=== PATIENT | male | born 1950 | race Caucasian/White ===

== ENCOUNTER 2024-09-25 10:01 | Outpatient (OUT) | payer MEDICARE, SELFPAY ==
--- NOTE | 2024-09-25 10:06 | ECG_ITS ---
[facility] Test Date: 2024-09-25 Pat Name: ARNOL ROBERT Department: Room: - Gender: Male Health Record Technician: : 1950 Requested By: HANNA ROSALES Order Number: [id number] Jonnie MD: HELENA BLANCHARD M.D. Measurements Intervals [place] Rate: 54 P: 44 NH: 173 QRS: 23 QRSD: 98 T: 45 QT: 420 QTc: 400 Interpretive Statements SINUS BRADYCARDIA WITH SINUS ARRHYTHMIA Otherwise normal ECG No previous ECG available for comparison Electronically Signed On 09-25-2024 17:48:49 EDT by HELENA BLANCHARD M.D.
--- OUTSIDE RECORDS SUMMARY | 2024-09-25 10:07 | XMS_ITS | Patient Health Record ---
Author Organization [facility] Address [address] [place] [address] Care Team Providers Care Manager Drilling Name Role Phone Michael Holden Primary Care Provider Unavailabl e Reason For Referral No Information Immunizations Vaccine Route Administration Date Status Comme nts PFIZER Covid 19 BOOSTER (0.3ml) 12yr & up IM Intramuscular 01/21/2021 Administered Problems No Known Problems Plan Of Treatment No Information Insurance Providers Payer Name Payer Address Payer Phone Subscriber Number Group Number Insured Name Patient Relationship to Insured Coverage Start Date Coverage End Date [place] [address] [place] [phone] [id number] ARNOL ROBERT Self - patient is the insured
--- OUTSIDE RECORDS SUMMARY | 2024-09-25 10:07 | XMS_ITS | Clinical Summary ---
Author Organization [facility] Address [address] [place] [address], [address] [place] [address] Care Team Providers Care Folding Machine Setter Name Role Phone Unavailable Primary Care Provider Unavailabl e Social History Tobacco Use Types Packs/Day Years Used Date Smoking Tobacco: Never Assessed Sex and Gender Information Value Date Recorded Sex Assigned at Not on file Legal Sex Male 10:18 AM EDT Gender Identity Not on file Sexual Orientation Not on file Plan of Treatment Not on file Insurance MEDICARE Member Subscriber Plan / Payer (Ef fective 2016-Present) Name:Richard Bravo Relation to Subscriber:Self Name:Richard Bravo Payer ID:Not on file Group ID:Not on file Type:Not on file Address: [address]
--- OUTSIDE RECORDS SUMMARY | 2024-09-25 10:07 | XMS_ITS | Encounter Summary ---
Author Organization [facility] Address [address] [place] [address] Care Team Providers Care Track Fitter Name Role Phone CarleyRaj aguilar Primary Care Provider + [phone] Maranda Bradley STUDIO GRIP-FAMILY CONSUMER SCIENTIST Unavailable + [phone] Alverto Marina MD Unavailable [phone] Encounter Details Date Type Department Care Team (Late st Contact Info) Description 11/13/2022 Orders Only [facility] [address] [facility] [address] [place] [phone] A, Unknown Practice [address] [place], [place] [phone] Social History Tobacco Use Types Packs/Day Years Used Date Smoking Tobacco: Former Cigarettes Q uit: 02/09/2004 Smokeless Tobacco: Never Alcohol Use Standard Drinks/Week Comments Yes 0 (1 standard drink = 0.6 oz pure alcohol) Points: 7, Interpretation: positive; Caffeine: Coffee 1-2 cups a day AUDIT-C Answer Date Recorded Q1: How often do you have a drink containing alcohol? 4 or more times a week 11/02/2022 Q2: How many drinks containi ng alcohol do you have on a typical day when you are drinking? 3 or 4 Q3: How often do you have si x or more drinks on one occasion? Monthly 11/02/2022 PHQ-2 Answer Date Recorded Patient Health Questionnaire-2 Score 0 11/02/2022 Sex and Gender Information Value Date Recorded Sex Assigned at Not on file Legal Sex Male 7:14 PM EDT Gender Identity Not on file Sexual Orientation Not on file documented as of this encounter Plan of Treatment Upcoming Encounters Date Type Department Care Team (Late st Contact Info) Description 10/02/2024 10:35 AM EDT Office Visit [facility] [address] [place] [phone] Maranda Bradley, STUDIO GRIP-FAMILY CONSUMER SCIENTIST [address] [place] [address] 12/26/2024 10:00 AM EST Office Visit [facility] [address] [place] [phone] Raj Preston DO [address] [place] [address] documented as of this encounter Procedures Procedure Name Priority Date/Time Associated Diagnosis Comments CT ANGIO CARDIAC Routine 11/09/2022 8:19 AM EDT documented in this encounter Results * CT ANGIO CARDIAC (11/09/2022 8:19 AM EDT) Anatomical Region Laterality Modality Radiographic Radha ging us Unknown Practice A IMG XR PROCEDURES Final Resul t documented in this encounter Visit Diagnoses Not on filedocumented in this encounter Care Teams Track Fitter Relationship Specialty Start Date End Date Raj Preston DO [address] [place] [address] PCP - General Internal Medicine 10/26/22 Maranda Bradley, STUDIO GRIP-FAMILY CONSUMER SCIENTIST [address] [place] [address] Nurse Practitioner Dermatology 07/04/24 Alverto Marina MD [address] [place] [address] Referring Physician Urology 07/04/24 [facility] Ophthalmology 07/04/24 documented as of this encounter
--- OUTSIDE RECORDS SUMMARY | 2024-09-25 10:07 | XMS_ITS | Encounter Summary ---
Author Organization [facility] Address [address] [facility] [place] [address] Care Team Providers Care Quality Assurance/R&D Lab Technician Name Role Phone Haider Preston DO Primary Care Provider [phone] Maranda Bradley APRN-WATCH ENGINE OPERATOR Unavailable + [phone] Alverto Marina MD Unavailable [phone] Encounter Details Date Type Department Care Team (Late st Contact Info) Description 11/09/2022 Clinisync Result Encounter [facility] External Department Unsolicited Haider Preston DO [address] [facility] [address] [place] [address] Social History Tobacco Use Types Packs/Day Years [...] Description 10/02/2024 10:35 AM EDT Office Visit [facility] [address] [place] [phone] Maranda Bradley, SPEECH COMMUNICATION INSTRUCTOR-WATCH ENGINE OPERATOR [address] [place] [address] 12/26/2024 10:00 AM EST Office Visit [facility] [address] [place] [address] Haider Preston DO [address] [place] [address] documented as of this encounter Procedures Procedure Name Priority Date/Time Associated Diagnosis Comments CT CARDIAC CALCIUM SCORING 11/09/2022 11:58 AM EDT documented in this encounter Results * CT CARDIAC CALCIUM SCORING (11/09/2022 11:58 AM EDT) Anatomical Region Laterality Modality Radiographic Radha ging 11/09/2022 11:5 8 AM EDT Narrative 11/09/2022 4:33 PM EDT Interpreted By: Guille Hunt, STUDY: CT CARDIAC SCORING WO IV CONTRAST; 11/09/2022 12:35 pm INDICATION: Signs/Symptoms:SCREENING. COMPARISON: None. ACCESSION NUMBER(S): [id number] ORDERING CLINICIAN: HAIDER PRESTON TECHNIQUE: Using prospective ECG gating, CT scan of the coronary arteries was performed without intravenous contrast. Coronary calcium scoring was performed according to the method of Agatston. FINDINGS: The score and distribution of calcium in the coronary arteries is as follows: LM 94.57, LAD 530.8, LCx 0, RCA 165.1, Total 790.55 The visualized ascending thoracic aorta is aneurysmal and measures 4.1 cm in diameter. The heart is normal in size. No pericardial effusion is present. No gross evidence of mediastinal or hilar lymphadenopathy or masses is identified. The visualized segments of the lungs are normally expanded. Descending thoracic aortic atherosclerosis is noted The main pulmonary artery, right and left pulmonary artery are normal in size. The visualized subdiaphragmatic structures appear intact. Diffuse low-attenuation liver consistent with hepatic steatosis. IMPRESSION: 1. Elevated coronary artery calcium score of 790.55*. 2. Ascending aortic aneurysm measuring4.1 cm on axial images at the level of the main pulmonary artery. Recommend follow-up radiation sparing cardiac MRI and thoracic MRA to assess status of the aortic valve and size and extent of the aneurysm in approximately 12-18 months. 3. This patient is at risk for future cardiovascular events. If this patient is currently not seeing a convalescent sitter, consider referring to the [facility] HVI Prevention Program or if patient is diabetic please consider referring to the [facility] comprehensive cardiovascular disease management program by emailing [email or web address]. 4. Thoracic aortic atherosclerosis. *Coronary Artery Agatston score Score risk Very low 1-99 Mildly increased 100-299 Moderately increased >300 Moderate to severely increased >800 Landon et al. JCCT 2016 (http://dx.doi.org/10.1016/j.jcct.2016.11.003) [place] 10-Year CHD Risk with Coronary Artery Calcification can be calcuate using link below https://www.pinzon-[email or web address]/MESACHDRisk/[email or web address]/RiskScore.aspx Roverto de paz al. JACC 2015 (http://dx.doi.org/10.1016/j.j acc.2015.08.035) Signed by: Guille Hunt 11/09/2022 4:33 PM Dictation workstation: [id number] Procedure Note Radiology, Radiologist, - 11/12/2022 Interpreted By: Guille Hunt, STUDY: CT CARDIAC SCORING WO IV CONTRAST; 11/09/2022 12:35 pm INDICATION: Signs/Symptoms:SCREENING. COMPARISON: None. ACCESSION NUMBER(S): [id number] ORDERING CLINICIAN: HAIDER PRESTON TECHNIQUE: Using prospective ECG gating, CT scan of the coronary arteries was performed without intravenous contrast. Coronary calcium scoring was performed according to the method of Agatston. FINDINGS: The score and distribution of calcium in the coronary arteries is as follows: LM 94.57, LAD 530.8, LCx 0, RCA 165.1, Total 790.55 The visualized ascending thoracic aorta is aneurysmal and measures 4.1 cm in diameter. The heart is normal in size. No pericardial effusion is present. No gross evidence of mediastinal or hilar lymphadenopathy or masses is identified. The visualized segments of the lungs are normally expanded. Descending thoracic aortic atherosclerosis is noted The main pulmonary artery, right and left pulmonary artery are normal in size. The visualized subdiaphragmatic structures appear intact. Diffuse low-attenuation liver consistent with hepatic steatosis. IMPRESSION: 1. Elevated coronary artery calcium score of 790.55*. 2. Ascending aortic aneurysm measuring4.1 cm on axial images at the level of the main pulmonary artery. Recommend follow-up radiation sparing cardiac MRI and thoracic MRA to assess status of the aortic valve and size and extent of the aneurysm in approximately 12-18 months. 3. This patient is at risk for future cardiovascular events. If this patient is currently not seeing a convalescent sitter, consider referring to the [facility] HVI Prevention Program or if patient is diabetic please consider referring to the [facility] comprehensive cardiovascular disease management program by emailing [email or web address]. 4. Thoracic aortic atherosclerosis. *Coronary Artery Agatston score Score risk Very low 1-99 Mildly increased 100-299 Moderately increased >300 Moderate to severely increased >800 Landon et al. JCCT 2016 (http://dx.doi.org/10.1016/j.jcct.2016.11.003) [place]ZON 10-Year CHD Risk with Coronary Artery Calcification can be calcuate using link below https://www.pinzon-nhlbi.org/MESACHDRisk/MesaRiskScore/RiskScore.aspx Roverto de paz al. JACC 2015 (http://dx.doi.org/10.1016/j.j acc.2015.08.035) Signed by: Guille Hunt 11/09/2022 4:33 PM Dictation workstation: [id number] us Haider Preston DO IMG XR PROCEDURES Final Resu lt documented in this encounter Visit Diagnoses Not on filedocumented in this encounter Care Teams Quality Assurance/R&D Lab Technician Relationship Specialty Start Date End Date Haider Preston DO [address] [place] [address] PCP - General Internal Medicine 10/26/22 Maranda Bradley APRN-WATCH ENGINE OPERATOR [address] [place] [address] Nurse Practitioner Dermatology 07/04/24 Alverto Marina MD [address] [place] [address] Referring Physician Urology 07/04/24 [facility] Ophthalmology 07/04/24 documented as of this encounter
--- OUTSIDE RECORDS SUMMARY | 2024-09-25 10:07 | XMS_ITS | Encounter Summary ---
Author Organization [facility] Address [address] [facility] [place] [address] Care Team Providers Care Hair Rooting Machine Operator Name Role Phone Raj Preston Primary Care Provider + [phone] Maranda Bradley APRN-COMMERCIAL REAL ESTATE ASSOCIATE Unavailable + [phone] Alverto Marina MD Unavailable [phone] Encounter Details Date Type Department Care Team (Late st Contact Info) Description 08/29/2024 Orders Only [facility] [address] [facility] [address] [place] [phone] Unallocated, Noms Greg, [address] [place] [address] Social History Tobacco Use Types Packs/Day Years [...] alcohol? 4 or more times a week 07/04/2024 Q2: How many drinks containi ng alcohol do you have on a typical day when you are drinking? 1 or 2 Q3: How often do you have si x or more drinks on one occasion? Never 07/04/2024 PHQ-2 Answer Date Recorded Patient Health Questionnaire-2 Score 0 07/04/2024 Sex and Gender Information Value Date Recorded Sex Assigned at Not on file Legal Sex Male 7:14 PM EDT Gender Identity Not on file Sexual Orientation Not on file documented as of this encounter Plan of Treatment Upcoming Encounters Date Type Department Care Team (Late st Contact Info) Description 10/02/2024 10:35 AM EDT Office Visit [facility] [address] [place] [address] Maranda Bradley, UTILITY SERVICE WORKER-COMMERCIAL REAL ESTATE ASSOCIATE [address] [place] [address] 12/26/2024 10:00 AM EST [facility] [address] [place] [address] Raj Preston DO [address] [place] [address] documented as of this encounter Procedures Procedure Name Priority Date/Time Associated Diagnosis Comments XR ABDOMEN 1 VIEW Routine 08/28/2024 11:04 AM EDT documented in this encounter Results * XR abdomen 1 view (08/28/2024 11:04 AM EDT) Anatomical Region Laterality Modality Abdomen Radiographic Radha ging us Noms Provider Unallocated IMG XR PROCEDURES F inal Result documented in this encounter Visit Diagnoses Not on filedocumented in this encounter Care Teams Hair Rooting Machine Operator Relationship Specialty Start Date End Date Raj Preston DO [address] [place] [address] PCP - General Internal Medicine 10/26/22 Maranda Bradley, UTILITY SERVICE WORKER-COMMERCIAL REAL ESTATE ASSOCIATE [address] [place] [address] Nurse Practitioner Dermatology 07/04/24 Alverto Marina MD [address] [place] [address] Referring Physician Urology 07/04/24 [facility] Ophthalmology 07/04/24 documented as of this encounter
--- OUTSIDE RECORDS SUMMARY | 2024-09-25 10:07 | XMS_ITS | Encounter Summary ---
Author Organization [facility] Address [address] [place] [address] Care Team Providers Care Governor Assembler Name Role Phone CarleyRaj aguilar Primary Care Provider + [phone] Maranda Bradley SPECIMEN TRANSPORTER-PROVER Unavailable + [phone] Alverto Marina MD Unavailable [phone] Encounter Details Date Type Department Care Team (Late st Contact Info) Description 11/23/2022 Orders Only [facility] [address] [facility] [address] [place] [address] A, Unknown Practice [address] [place], [place] [phone] Social History Tobacco Use Types Packs/Day Years [...] [address] [place] [phone] Maranda Bradley, SPECIMEN TRANSPORTER-PROVER [address] [place] [address] 12/26/2024 10:00 AM EST [facility] [address] [place] [phone] Raj Preston DO [address] [place] [address] documented as of this encounter Procedures Procedure Name Priority Date/Time Associated Diagnosis Comments CT ANGIO CARDIAC Routine 11/09/2022 10:25 AM EDT documented in this encounter Results * CT ANGIO CARDIAC (11/09/2022 10:25 AM EDT) Anatomical Region Laterality Modality Radiographic Radha ging us Unknown Practice A IMG XR PROCEDURES Final Resul t documented in this encounter Visit Diagnoses Not on filedocumented in this encounter Care Teams Governor Assembler Relationship Specialty Start Date End Date Raj Preston DO [address] [place] [address] PCP - General Internal Medicine 10/26/22 Maranda Bradley, SPECIMEN TRANSPORTER-PROVER [address] [place] [address] Nurse Practitioner Dermatology 07/04/24 Alverto Marina MD [address] [place] [address] Referring Physician Urology 07/04/24 SV[facility] Ophthalmology 07/04/24 documented as of this encounter
--- OUTSIDE RECORDS SUMMARY | 2024-09-25 10:07 | XMS_ITS | Encounter Summary ---
Author Organization [facility] Address [address] [place] [address] Care Team Providers Care Agricultural Researcher Name Role Phone Raj Preston Primary Care Provider + [phone] Maranda Bradley [employer]EEPLE [employer]-TECHNICAL ASSOC Unavailable + [phone] Alverto Marina MD Unavailable [phone] Encounter Details Date Type Department Care Team (Late st Contact Info) Description 02/10/2023 Orders Only [facility] [address] [facility] [address] [place] [address] A, Unknown Practice [address] [place], [place] [phone] Social History Tobacco Use Types Packs/Day Years [...] 10/02/2024 10:35 AM EDT Office Visit [facility] [address] [place] [address] Maranda Bradley APRN-TECHNICAL ASSOC [address] [place] [address] 12/26/2024 10:00 AM EST Office Visit [facility] [address] [place] [phone] Raj Preston DO [address] [place] [address] documented as of this encounter Procedures Procedure Name Priority Date/Time Associated Diagnosis Comments LIVER ELASTOGRAPHY W PROBE Routine 02/03/2023 9:14 AM EST documented in this encounter Results * LIVER ELASTOGRAPHY W PROBE (02/03/2023 9:14 AM EST) Anatomical Region Laterality Modality Radiographic Radha ging us Unknown Practice A IMG XR PROCEDURES Final Resul t documented in this encounter Visit Diagnoses Not on filedocumented in this encounter Care Teams Agricultural Researcher Relationship Specialty Start Date End Date Raj Preston DO [address] [place] [address] PCP - General Internal Medicine 10/26/22 Maranda Bradley, [employer]-TECHNICAL ASSOC [address] [place] [address] Nurse Practitioner Dermatology 07/04/24 Alverto Marina MD [address] [place] [address] Referring Physician Urology 07/04/24 SV[facility] Ophthalmology 07/04/24 documented as of this encounter
--- OUTSIDE RECORDS SUMMARY | 2024-09-25 10:07 | XMS_ITS | Encounter Summary ---
Author Organization [facility] Address [address] [facility] [place] [address] Care Team Providers Care Die Baker Name Role Phone Raj Preston DO Primary Care Provider [phone] Maranda Bradley APRN-DEHAIRING MACHINE TENDER Unavailable + [phone] Alverto Marina MD Unavailable [phone] Encounter Details Date Type Department Care Team (Late st Contact Info) Description 02/23/2024 Orders Only [facility] [address] [facility] [address] [place] [address] Alverto Marina MD [address] [place] [address] Social History Tobacco Use Types Packs/Day Years [...] [address] [place] [phone] Maranda Bradley, FISHING VESSEL CAPTAIN-DEHAIRING MACHINE TENDER [address] [place] [address] 12/26/2024 10:00 AM EST Office Visit [facility] [address] [place] [phone] Raj Preston DO [address] [place] [address] documented as of this encounter Procedures Procedure Name Priority Date/Time Associated Diagnosis Comments PSA, TOTAL Routine 02/16/2024 2:47 PM EST documented in this encounter Results * PSA (02/16/2024 2:47 PM EST) Blood Venous blood specimen / Unknown us Alverto Marina MD LAB BLOOD ORDERABLES Final R esult documented in this encounter Visit Diagnoses Not on filedocumented in this encounter Care Teams Die Baker Relationship Specialty Start Date End Date Raj Preston DO [address] [place] [address] PCP - General Internal Medicine 10/26/22 Maranda Bradley, FISHING VESSEL CAPTAIN-DEHAIRING MACHINE TENDER [address] [place] [address] Nurse Practitioner Dermatology 07/04/24 Alverto Marina MD [address] [place] [address] Referring Physician Urology 07/04/24 [facility] Ophthalmology 07/04/24 documented as of this encounter
--- OUTSIDE RECORDS SUMMARY | 2024-09-25 10:07 | XMS_ITS | Clinical Summary ---
Author Organization [facility] Address [address] [place], [place] [id number] Care Team Providers Care Laborer [employer] Name Role Phone Rock Watts Primary Care Provid er Allergies No known active allergies Medications lisinopril-hydro chlorothiazide (PRINZIDE, ZESTORETIC) 20-25 mg per tablet Take 1 tablet by mouth once daily. Active amLODIPine (NORVASC) 2.5 mg tablet Take 5 mg by mouth once daily. Active aspirin, enteric coated (ASPIRIN, ENTERIC COATED) 325 mg EC tablet Take 1 tablet by mouth twice daily. 80 tablet 0 02/27/2015 Active diclofenac-misop rostol (ARTHROTEC 75) 75-200 mg-mcg per tablet Take 1 tablet by mouth twice daily. TAKE WITH FOOD. 60 tablet 1 08/01/2015 Active Active Problems Problem Noted Date Diagnosed Date Status post total right knee replacement 016 Postoperative anemia due to acute blood loss Essential hypertension 02/27/2015 Social History Tobacco Use Types Packs/Day Years Used Date Smoking Tobacco: Former Comments:quit appox 5 yrs ag o Alcohol Use Standard Drinks/Week Comments Yes 0 (1 standard drink = 0.6 oz pur e alcohol) box and a half of wine aweek Sex and Gender Information Value Date Recorded Sex Assigned at Not on file Legal Sex Male 11:55 AM EST Gender Identity Not on file Sexual Orientation Not on file Last Filed Vital Signs Vital Sign Reading Time Taken Comments Blood Pressure 119/79 02/27/2015 2:38 PM EST Pulse 76 02/27/2015 2:38 PM EST Temperature 37.1 C (98.8 F) 02/27/2015 2:38 PM EST Respiratory Rate 18 02/27/2015 2:38 PM EST Oxygen Saturation 98% 02/27/2015 2:38 PM EST Inhaled Oxygen Concentration - - Weight 84.6 kg (186 lb 9.6 oz) 02/26/2015 7:20 A M EST Height 167.6 cm (5' 6 ) 02/26/2015 3:27 PM EST Body Mass Index 30.12 02/26/2015 7:20 AM EST Plan of Treatment Health Maintenance Due Date Last Done Comments Anxiety Screening 1967 Depression Screening 1967 Hepatitis C Screening 1967 DTaP,Tdap,Td Vaccine (1 - Tdap) 02/21/1968 Lipid Screening 02/21/1984 CT Colonography 1994 Cologuard (FIT-DNA) 1994 Colonoscopy 1994 Colorectal Cancer Screening 1994 Fecal Occult Blood 1994 Sigmoidoscopy 1994 Pneumococcal Vaccine: 50+ (1 of 1 - PCV) 1999 Shingrix Vaccine (1 of 2) 1999 Diabetes Screening 02/27/2018 02/27/2015, 0 02/21/2015, 02/21/2015 Advance Directive Discussion 02/09/2024 RSV Vaccine (1 - 1-dose 75+ series) 02/21/2024 Influenza Vaccine (#1) 2024 Medical Devices Implanted Type Area Sheet Metal Mechanic Device Identifier Shelf Expiration Date Model / Serial / Lot Mitchell Bn Smplx Hv Fd - [id number] Implanted:Qty : 1 on 02/26/2015 at [facility] Cement / Putty Right: Bone - Knee [employer] 07/08/2016 [id number] / / [id number] Description:Simplex HV Cemen t Wip-Pv-Q-Kind Implant - [id number] Implanted:Qty : 1 on 02/26/2015 at [facility] Implant Right: Bone - Knee [employer] 09/08/2019 [id number] / / [id number] Description:All Poly Patella Pki-Pq-Q-Kind Implant - [id number] Implanted:Qty : 1 on 02/26/2015 at [facility] Implant Right: Bone - Knee [employer] 04/08/2019 [id number] / / [id number] Description:Persona Articula r surface Right 14mm Height Component Daniel Triathlon Knee Right 7 Standard Cocr Femoral Cruciate - [id number] Implanted:Qty : 1 on 02/26/2015 at [facility] Joint - Knee Right: Bone - Knee [employer] 06/07/2024 [id number] / / [id number] Description:Daniel Femur Baseplate Persona 5d F Tivanium Tibial Cemented Stem Knee Right - [id number] Implanted:Qty : 1 on 02/26/2015 at [facility] Joint Right: Bone - Knee [employer] 01/07/2025 [id number] / / [id number] Description:Daniel Natural Tibia Stemmed Procedures Procedure Name Priority Date/Time Associated Diagnosis Comments BASIC METABOLIC PANEL (EU,FV,HL,RODNEY,MM,SP) NOAH 02/27/2015 2:44 AM EST from Last 3 Months or Most Recently Relevant to Health Maintenance Results * (ABNORMAL) BASIC METABOLIC PANEL (EU,FV,HL,LK,RODNEY,MM,SP) (02/27/2015 2:44 AM EST) Pathologist [facility] Glucose 157(H) 65 - 100 mg/dL 02/27/2015 3:52 AM [facility] BUN 23 8 - 25 mg/dL 02/27/2015 3:52 AM [facility] Creatinine 0.86 0.80 - 1.30 mg/dL 02/27/2015 3:52 AM [facility] Sodium 138 135 - 146 mmol/L 02/27/2015 3:52 AM [facility] Potassium 4.3 3.5 - 5.0 mmol/L 02/27/2015 3:52 AM [facility] Chloride 102 98 - 107 mmol/L 02/27/2015 3:52 AM [facility] CO2 23 23 - 32 mmol/L 02/27/2015 3:52 AM [facility] Anion Gap 13 0 - 15 mmol/L 02/27/2015 3:52 AM [facility] Calcium 8.4(L) 8.5 - 10.5 mg/dL 02/27/2015 3:52 AM [facility] eGFR- >60 >60 02/27/2015 3:52 AM EST [facility] Comment:eGFR LRR Standardiza tion Glom Filtration Rate (LUCY) >60 >60 . 02/27/2015 3:52 AM EST [facility] Blood specimen (specimen) BLOOD SPECIMEN / Unknown 02/27/2015 2:44 AM EST 02/27/2015 2:45 AM EST [facility] Final Re sult [facility] [address] [place] [address] [id number] from Last 3 Months or Most Recently Relevant to Health Maintenance Insurance MEDICARE BLUE CARD PPO OOS Care Teams Laborer [employer] Relationship Specialty Start Date End Date Rock Watts DO [address] [place] [address] PCP - General Family Medicine 12/12/14
--- OUTSIDE RECORDS SUMMARY | 2024-09-25 10:07 | XMS_ITS | Encounter Summary ---
Author Organization [facility] Address [address] [facility] [place] [address] Care Team Providers Care Rewrite Editor Name Role Phone Raj Preston Primary Care Provider + [phone] Maranda Bradley APRN-PHYSICAL DIRECTOR Unavailable + [phone] Alverto Marina MD Unavailable [phone] Encounter Details Date Type Department Care Team (Late st Contact Info) Description 08/24/2024 Orders Only [facility] [address] [facility] [address] [place] [phone] Unallocated, Noms Greg, [address] [place] [address] Social History Tobacco Use Types Packs/Day Years [...] 10/02/2024 10:35 AM EDT Office Visit [facility] [address] [place] [phone] Maranda Bradley, FRUIT CHECKER-PHYSICAL DIRECTOR [address] [place] [address] 12/26/2024 10:00 AM EST Office Visit [facility] [address] [place] [phone] Raj Preston DO [address] [place] [address] documented as of this encounter Procedures Procedure Name Priority Date/Time Associated Diagnosis Comments PSA, TOTAL Routine 08/23/2024 9:05 AM EDT documented in this encounter Results * PSA (08/23/2024 9:05 AM EDT) Blood Venous blood specimen / Unknown us Noms Provider Unallocated LAB BLOOD ORDERABLE S Final Result documented in this encounter Visit Diagnoses Not on filedocumented in this encounter Care Teams Rewrite Editor Relationship Specialty Start Date End Date Raj Preston DO [address] [place] [address] PCP - General Internal Medicine 10/26/22 Maranda Bradley, FRUIT CHECKER-PHYSICAL DIRECTOR [address] [place] [address] Nurse Practitioner Dermatology 07/04/24 Alverto Marina MD [address] [place] [address] Referring Physician Urology 07/04/24 [facility] Ophthalmology 07/04/24 documented as of this encounter
--- OUTSIDE RECORDS SUMMARY | 2024-09-25 10:07 | XMS_ITS | Clinical Summary ---
Author Organization [facility] Address [address] [place] [address] Phone Care Team Providers Care Bilingual Student Tutor Name Role Phone Raj Preston DO Primary Care Provider Social History Tobacco Use Types Packs/Day Years Used Date Smoking Tobacco: Never Assessed Sex and Gender Information Value Date Recorded Sex Assigned at Not on file Legal Sex Male 12:46 PM EST Gender Identity Not on file Sexual Orientation Not on file Plan of Treatment Health Maintenance Due Date Last Done Comments CT Colonography 1949 Colonoscopy 1949 Colorectal Cancer Screening 1949 FIT-DNA (Cologuard) 1949 FIT 1949 Lipid Panel 1949 Sigmoidoscopy 1949 Yearly Adult Physical 1949 MMR Vaccines (1 of 1 - Standard series) 1950 Hepatitis C Screening 1967 Pneumococcal Vaccine (1 of 1 - PCV) 1999 Zoster Vaccines (2 of 2) 03/24/2021 01/27/2021 COVID-19 Vaccine (4 - 2023-2 5 season) 2023 01/21/2021, 04/23/2020, 04/02/2020 RSV High Risk: (Elderly (60+ ) or Population) (1 - 1-dose 75+ series) 02/21/2024 Influenza Vaccine (#1) 2024 DTaP/Tdap/Td Vaccines (2 - T d or Tdap) 01/20/2032 01/19/2022 HIB Vaccines Aged Out No longer eligi ble based on patient's age to complete this topic HPV Vaccines Aged Out No longer eligi ble based on patient's age to complete this topic Hepatitis A Vaccines Aged Out No long er eligible based on patient's age to complete this topic Hepatitis B Vaccines Aged Out No long er eligible based on patient's age to complete this topic IPV Vaccines Aged Out No longer eligi ble based on patient's age to complete this topic Meningococcal Vaccine Aged Out No ej mel eligible based on patient's age to complete this topic Rotavirus Vaccines Aged Out No longer eligible based on patient's age to complete this topic Care Teams Bilingual Student Tutor Relationship Specialty Start Date End Date Raj Preston DO [address] [place] [address] PCP - General Internal Medicine 11/05/22
--- OUTSIDE RECORDS SUMMARY | 2024-09-25 10:07 | XMS_ITS | Clinical Summary ---
Author Organization [facility] Address [address] [place] [address] Care Team Providers Care Adolescent Counselor Name Role Phone Raj Preston Primary Care Provider [phone] Maranda Bradley APRN-UNDERTAKER HELPER Unavailable + [phone] Alverto Marina MD Unavailable [phone] Allergies No known active allergies Medications amLODIPine (Norvasc) 5 MG tabletIndications: Primary hypertension TAKE 1 TABLET BY MOUTH DAILY 90 tablet 3 4 Active lisinopril-hydroCH LOROthiazide 20-25 MG tabletIndications: Primary hypertension TAKE 1 TABLET BY MOUTH DAILY 90 tablet 3 4 Active rosuvastatin (Crestor) 20 MG tabletIndications: Mixed hyperlipidemia TAKE 1 TABLET BY MOUTH EVERY MORNING 90 tablet 3 4 Active Cholecalciferol (Vitamin D3) 50 MCG (1999 UT) chewable tabletIndications: Vitamin D Deficiency Chew 50 mcg Daily Active meloxicam (Mobic) 15 MG tabletIndications: Low back pain, unspecified back pain laterality, unspecified chronicity, unspecified whether sciatica present Take 1 tablet (15 mg) by mouth Daily 90 tablet 3 5 09/01/19 26 Active albuterol HFA 90 mcg/act inhaler INHALE 1 puff EVERY 4 HOURS NEEDED for SHORTNESS OF BREATH or FOR WHEEZING 5 Active Active Problems Problem Noted Date Diagnosed Date Balance disorder 06/20/2024 Cervicalgia 06/20/2024 Class 1 obesity due to exces s calories with serious comorbidity and body mass index (BMI) of 31.0 to 31.9 in adult 12/10/2022 Agatston CAC score, >400 11/23/2022 Aneurysm of ascending aorta without rupture 11/08 Overview (11/23/2022): 4.1cm 11/2022 CAC Vitamin B12 deficiency 11/23/2022 Overview (01/24/2023): 193 Alcoholism 11/02/2022 Anxiety 11/02/2022 Benign prostatic hyperplasia 11/02/2022 Carpal tunnel syndrome 11/02/2022 Essential hypertension 11/02/2022 Mixed hyperlipidemia 11/02/2022 Fatty liver 11/02/2022 Macrocytosis without anemia 11/02/2022 Prediabetes 11/02/2022 Resolved Problems Problem Noted Date Diagnosed Date Resolved Date Cubital tunnel syndrome on right 11/02/2022 11/02/2022 Memory loss 11/02/2022 08/28/2023 Presence of left artificial knee joint 11/02/2022 11/02/2022 Primary osteoarthritis of knees, bilateral 11/02/2022 11/02/2022 Encounters Date Type Department Care Team Description 09/07/2024 Orders Only [facility] [address] [place] [phone] Unallocated , Paola Garza MD 09/05/2024 3:00 PM EDT Ancillary Procedure [facility] [address] [place] [phone] Right testicular pain 09/05/2024 Travel 09/04/2024 Travel 08/30/2024 Telephone [facility] [address] [place] [address] Ray Nielsen MA Med Refill 08/29/2024 Orders Only [facility] [address] [place] [address] Unallocated , Paola Garza MD 08/28/2024 12:00 PM EDT Treatment [facility] [address] [place] [address] Angely Romeo, PT Acute left-sided low back pain with left-sided sciatica (Primary Dx); Left hip pain 08/28/2024 Bamboo flowsheet [facility] [address] [place] [address] Angely Romeo, PT 08/28/2024 Travel 08/25/2024 12:30 PM EDT Treatment [facility] [address] [place] [address] Norah Jackson, BOLT CUTTER Acute left-sided low back pain with left-sided sciatica (Primary Dx); Left hip pain 08/25/2024 Bamboo flowsheet [facility] [address] [place] [address] Norah Jackson, BOLT CUTTER 08/25/2024 Travel 08/24/2024 Orders Only [facility] [address] [place] [address] Unallocated , Paola Garza MD 08/21/2024 12:30 PM EDT Treatment [facility] [address] [place] [address] Norah Jackson, BOLT CUTTER Acute left-sided low back pain with left-sided sciatica (Primary Dx); Left hip pain 08/21/2024 Bamboo flowsheet [facility] [address] [place] [address] Norah Jackson, BOLT CUTTER 08/21/2024 Travel 08/18/2024 10:30 AM EDT Treatment [facility] [address] [place] [address] Norah Jackson, BOLT CUTTER Acute left-sided low back pain with left-sided sciatica (Primary Dx); Left hip pain 08/18/2024 Bamboo flowsheet [facility] [place] [facility] [address] [place] [address] Norah Jackson, BOLT CUTTER 08/18/2024 Travel 08/14/2024 9:30 AM EDT Evaluation [facility] [place] [facility] [address] [place] [address] Angely Romeo, PT Acute left-sided low back pain with left-sided sciatica (Primary Dx); Left hip pain 08/14/2024 Plan of Care Documentation [facility] [place] [facility] [address] [place] [address] 08/14/2024 Bamboo flowsheet [facility] [place] [facility] [address] [place] [address] Angely Romeo, PT 08/14/2024 Travel 08/07/2024 Telephone [facility] [place] [facility] [address] [place] [address] Maria Victoria Aranda LPN handicap placard 08/01/2024 Telephone [facility] [place] [facility] [address] [place] [address] Maria Victoria Aranda LPN 07/10/2024 9:00 AM EDT Treatment [facility] [place] [facility] [address] [place] [address] Mandi Cerda, BOLT CUTTER Balance disorder (Primary Dx); Cervicalgia; Vertigo 07/10/2024 Bamboo flowsheet [facility] [place] [facility] [address] [place] [address] Mandi Cerda, BOLT CUTTER 07/10/2024 Travel 07/07/2024 Telephone [facility] [place] [facility] [address] [place] [address] Elvia Calvillo LPN requesting Motrin 07/04/2024 10:30 AM EDT Office Visit [facility] [address] [place] [address] Deepa Ingram NP Medicare annual wellness visit, subsequent (Primary Dx); Primary hypertension ; Mixed hyperlipidemia ; Hearing loss, unspecified hearing loss type, unspecified laterality; Alcoholism (HCC); Former smoker, stopped smoking many years ago; Class 1 obesity due to excess calories with serious comorbidity and body mass index (BMI) of 34.0 to 34.9 in adult 07/04/2024 Travel 06/26/2024 11:00 AM EDT [facility] [address] [place] [address] Mandi Cerda, BOLT CUTTER Balance disorder (Primary Dx) 06/26/2024 Bamboo flowsheet [facility] [address] [place] [address] Mandi Cerda, BOLT CUTTER 06/26/2024 Travel from Last 3 Months Immunizations Immunization Administration Dates Next Due Moderna SARS-CoV-2 Vaccination 04/23/2020 Pfizer Purple Cap SARS-CoV-2 Vaccination 021 Tdap 01/19/2022 Zoster, Recombinant 05/07/2023,03/08/2023,2020 Family History Medical History Relation Name Comments Breast cancer Daughter Heart disease Father Cancer Sibling Relation Name Status Comments Brother 2 Daughter 3 Father Mother Alive Sibling Social History Tobacco Use Types Packs/Day Years Used Date Smoking Tobacco: Former Cigarettes Q uit: 02/09/2004 Smokeless Tobacco: Never Tobacco Cessation:Counseling Given: Not Answered Alcohol Use Standard Drinks/Week Comments Yes 0 [...] Sign Reading Time Taken Comments Blood Pressure 138/70 07/04/2024 10:29 AM EDT Pulse 81 07/04/2024 10:29 AM EDT Temperature - - Respiratory Rate 16 03/22/2024 9:13 AM EST Oxygen Saturation 95% 07/04/2024 10:29 AM EDT Inhaled Oxygen Concentration - - Weight 95.7 kg (211 lb) 07/04/2024 10:29 AM EDT Height 167.6 cm (5' 6 ) 07/04/2024 10:29 AM EDT Body Mass Index 34.06 07/04/2024 10:29 AM EDT Plan of Treatment Upcoming Encounters Date Type Department Care Team (Late st Contact Info) Description 10/02/2024 10:35 AM EDT Office Visit [facility] [address] [place] [address] Maranda Bradley, HAT BAND ATTACHER-UNDERTAKER HELPER [address] [place] [address] 12/26/2024 10:00 AM EST Office Visit [facility] [address] [place] [address] Raj Preston DO [address] [place] [address] Health Maintenance Due Date Last Done Comments CT Colonography 1949 FIT-DNA 1949 FOBT 1950 Sigmoidoscopy 1949 FIT 11/29/2020 11/30/2019 Influenza Vaccine (#1) 2024 Medicare Annual Wellness (AWV) 07/04/2025 07/04/2024 Colonoscopy 02/28/2030 02/29/2020, 12/28/2014, 05/29/2014 Colorectal Cancer Screening 02/28/2030 Pneumococcal Vaccine: 65+ Years Addressed 01/25/2023 Overridden with the intention of not completing the topic Procedures Procedure Name Priority Date/Time Associated Diagnosis Comments XR ABDOMEN 1 VIEW Routine 09/06/2024 8:3 3 AM EDT US SCROTUM Routine 09/05/2024 3:29 PM EDT Right testicular pain XR ABDOMEN 1 VIEW Routine 08/28/2024 11: 04 AM EDT PSA, TOTAL Routine 08/23/2024 9:05 AM EDT COLONOSCOPY Routine 02/29/2020 12:00 PM EST Q - FECAL GLOBIN BY IMMUNO (MEDICARE) Routine 11/30/2019 12:00 PM EDT from Last 3 Months or Most Recently Relevant to Health Maintenance Results * XR abdomen 1 view (09/06/2024 8:33 AM EDT) Only the most recent of2 resultswithin the time period is included. Anatomical Region Laterality Modality Abdomen Radiographic Radha ging us Noms Provider Unallocated MD IMG XR PROCEDURES F inal Result * US scrotum (09/05/2024 3:29 PM EDT) Anatomical Region Laterality Modality Body Ultrasound 09/06/2024 12:1 1 PM EDT Impressions 09/06/2024 12:12 PM EDT Unremarkable sonographic appearance of the testes, with normal arterial and venous flow to both testes. Left hydrocele. Incidental tiny epididymal cysts. ELECTRONICALLY SIGNED BY: Yadiel Tavares MD Narrative 09/06/2024 12:12 PM EDT HISTORY: Right testicular pain. TECHNIQUE: Sonography of the scrotal contents with color flow and spectral Doppler imaging of the testicular vasculature performed. Images were obtained and stored in a permanent archive. COMPARISON: None. RESULT: RIGHT TESTIS: Size: 3.3 cm Parenchyma: Homogeneous with no calcifications or mass. Epididymis: Incidental 0.4 cm cyst, otherwise unremarkable. Vascularity: Normal intratesticular arterial and venous flow with normal spectral waveforms. LEFT TESTIS: Size: 3.2 cm Parenchyma: Homogeneous with no calcifications or mass. Epididymis: Incidental 0.5 cm cyst, otherwise unremarkable. Vascularity: Normal intratesticular arterial and venous flow with normal spectral waveforms. HYDROCELE: Left hydrocele measuring around 3.6 x 0.5 x 2.0 cm. VARICOCELE: None. Procedure Note Yadiel Tavares MD - 09/06/2024 HISTORY: Right testicular pain. TECHNIQUE: Sonography of the scrotal contents with color flow andspectral Doppler imaging of the testicular vasculature performed. Imageswere obtained and stored in a permanent archive. COMPARISON: None. RESULT: RIGHT TESTIS: Size: 3.3 cm Parenchyma: Homogeneous with no calcifications or mass. Epididymis: Incidental 0.4 cm cyst, otherwise unremarkable. Vascularity: Normal intratesticular arterial and venous flow withnormal spectral waveforms. LEFT TESTIS: Size: 3.2 cm Parenchyma: Homogeneous with no calcifications or mass. Epididymis: Incidental 0.5 cm cyst, otherwise unremarkable. Vascularity: Normal intratesticular arterial and venous flow withnormal spectral waveforms. HYDROCELE: Left hydrocele measuring around 3.6 x 0.5 x 2.0 cm. VARICOCELE: None. IMPRESSION: Unremarkable sonographic appearance of the testes, with normal arterialand venous flow to both testes. Left hydrocele. Incidental tiny epididymal cysts. ELECTRONICALLY SIGNED BY: Yadiel Tavares MD Alverto Marina MD IMG US PROCEDURES Final Resu lt * PSA (08/23/2024 9:05 AM EDT) Blood Venous blood specimen / Unknown Noms Provider Unallocated LAB BLOOD ORDERABLE S Final Result * Colonoscopy (02/29/2020 12:00 PM EST) Anatomical Region Laterality Modality Endoscopy 02/29/2020 12:0 0 PM EST Narrative 02/29/2020 12:00 PM EST PERFORMED AT [facility] LOCATION:[id number] [facility] Procedure Note CONVERSION, GENERIC - 06/24/2022 PERFORMED AT [facility] LOCATION:[id number] [facility] Michael Holden DO ENDOSCOPY PROCEDURE ORDERABLES Final Result * Q - FECAL GLOBIN BY IMMUNO (MEDICARE) (11/30/2019 12:00 PM EDT) RESULT [facility] FECAL GLOBIN BY IMMUNOCHEM. (MEDICARE) [facility] 11/30/2019 12:0 0 PM EDT Michael Holden DO [facility] Final Result [facility] from Last 3 Months or Most Recently Relevant to Health Maintenance Insurance [employer] MEDICARE Care Teams Adolescent Counselor Relationship Specialty Start Date End Date Raj Preston DO [address] [place] [address] PCP - General Internal Medicine 10/26/22 Maranda Bradley APRN-UNDERTAKER HELPER [address] [place] [address] Nurse Practitioner Dermatology 07/04/24 Alverto Marina MD [address] [place] [address] Referring Physician Urology 07/04/24 [facility] Ophthalmology 07/04/24
--- OUTSIDE RECORDS SUMMARY | 2024-09-25 10:07 | XMS_ITS | Encounter Summary ---
Author Organization [facility] Address [address] [place] [address] Care Team Providers Care Geological Aide Name Role Phone Raj Preston Primary Care Provider + [phone] Maranda Bradley APRN-ABNORMAL PSYCHOLOGY TEACHER Unavailable + [phone] Alverto Marina MD Unavailable [phone] Encounter Details Date Type Department Care Team (Late st Contact Info) Description 09/07/2024 Orders Only [facility] [address] [facility] [address] [place] [phone] Unallocated, [facility], [address] [place] [address] Social History Tobacco Use Types Packs/Day Years [...] [address] [place] [phone] Maranda Bradley, DIE TRIMMER-ABNORMAL PSYCHOLOGY TEACHER [address] [place] [address] 12/26/2024 10:00 AM EST Office Visit [facility] [address] [place] [phone] Raj Preston DO [address] [place] [address] documented as of this encounter Procedures Procedure Name Priority Date/Time Associated Diagnosis Comments XR ABDOMEN 1 VIEW Routine 09/06/2024 8:33 AM EDT documented in this encounter Results * XR abdomen 1 view (09/06/2024 8:33 AM EDT) Anatomical Region Laterality Modality Abdomen Radiographic Radha ging us [facility] Provider Unallocated IMG XR PROCEDURES F inal Result documented in this encounter Visit Diagnoses Not on filedocumented in this encounter Care Teams Geological Aide Relationship Specialty Start Date End Date Raj Preston DO [address] [place] [address] PCP - General Internal Medicine 10/26/22 Maranda Bradley, DIE TRIMMER-ABNORMAL PSYCHOLOGY TEACHER [address] [place] [address] Nurse Practitioner Dermatology 07/04/24 Alverto Marina MD [address] [place] [address] Referring Physician Urology 07/04/24 [facility] Ophthalmology 07/04/24 documented as of this encounter
--- NOTE | 2024-09-25 10:47 | PM.PRESUREVA ---
History of Present Illness History of Present Illness Chief complaint: Right Kidney Stone Narrative: Patient presents for presurgical testing. The patient states he had a follow-up with Dr. Marina for an x-ray and blood work and it was determined that he had kidney stones. He states he has left sided back pain and right testicular tenderness. He denies dysuria, hematuria, nausea, vomiting, fever, or any other complaints. Review of Systems ROS Narrative REVIEW OF SYSTEMS: Negative except as stated in HPI, ten or more systems reviewed. Constitutional: No fever, chills, weakness ENT: No sore throat or epistaxis Cardiovascular: No edema, chest pain, palpitations, or activity intolerance Respiratory: No shortness of breath, cough, or wheezing Musculoskeletal: No joint pain or swelling Gastrointestinal: No abdominal pain, constipation, diarrhea, or vomiting Genitourinary: No dysuria or hematuria Neurological: No numbness, tingling, weakness, or headache Psychiatric: No mood changes PFSH PFSH Medical History (Updated 09/25/24 @ 10:57 by Yenni Gongora NP) Prostate cancer ?C61 - Malignant neoplasm of prostate (ICD-10) Osteoarthritis ?M19.90 - Unspecified osteoarthritis, unspecified site (ICD-10) Back pain ?M54.9 - Dorsalgia, unspecified (ICD-10) Arthritis ?M19.90 - Unspecified osteoarthritis, unspecified site (ICD-10) Kidney stones ?N20.0 - Calculus of kidney (ICD-10) Hypertension ?I10 - Essential (primary) hypertension (ICD-10) High cholesterol ?E78.00 - Pure hypercholesterolemia, unspecified (ICD-10) Surgical History (Updated 09/25/24 @ 10:57 by Yenni Gongora NP) S/P TURP ?Z90.79 - Acquired absence of other genital organ(s) (ICD-10) History of hernia repair ?Z98.890 - Other specified postprocedural states (ICD-10) ?Z87.19 - Personal history of other diseases of the digestive system (ICD-10) History of colonoscopy ?Z98.890 - Other specified postprocedural states (ICD-10) History of carpal tunnel release ?Z98.890 - Other specified postprocedural states (ICD-10) S/P cystoscopy ?Z98.890 - Other specified postprocedural states (ICD-10) Hx of prostate biopsy ?Z98.890 - Other specified postprocedural states (ICD-10) History of arthroplasty of knee ?Z96.659 - Presence of unspecified artificial knee joint (ICD-10) Family History (Updated 09/25/24 @ 10:30 by Yenni Gongora NP) Other Family history of breast cancer Family history of heart disease Social History (Updated 09/25/24 @ 10:25 by Yenni Gongora NP) Within the past year, how often did you have a drink containing alcohol: 2-3 times a week Smoking status: Former smoker Non-prescribed substance use: denies use Highest level of school completed/degree received: high school graduate Meds Home Medications and Allergies Home Medications ?Medication ?Instructions ?Recorded ?Confirmed ?Type amlodipine 5 mg tablet 5 mg PO DAILY 09/25/24 09/25/24 History cholecalciferol (vitamin D3) 50 50 mcg PO DAILY 09/25/24 09/25/24 History mcg (2,000 unit) capsule lisinopril 20 1 tab PO DAILY 09/25/24 09/25/24 History mg-hydrochlorothiazide 25 mg tablet meloxicam 15 mg tablet 15 mg PO DAILY 09/25/24 09/25/24 History rosuvastatin 20 mg tablet 20 mg PO DAILY 09/25/24 09/25/24 History vitamin B complex 1 tab PO DAILY 09/25/24 09/25/24 History Allergies Allergy/AdvReac Type Severity Reaction Status Date / Time No Known Drug Allergies Allergy Verified 09/25/24 10:23 Exam Narrative Exam Narrative: Constitutional: Awake, alert, comfortable, well-appearing, nontoxic, interactive, vital signs as charted Head: Normocephalic, atraumatic Neck: Supple, normal appearance, normal range of motion, no meningeal signs, no lymphadenopathy Respiratory: No respiratory distress, breath sounds clear Cardiovascular: Regular rate and rhythm, strong and regular heart tones Abdomen: Nontender, normal bowel sounds, soft, no CVA tenderness Musculoskeletal: Normal gait, no swelling or edema Skin: No rashes or induration, no lesions, only visible skin inspected Neuro: No neurological deficits, normal sensation Psychiatric: Oriented ?3, normal affect Assessment and Plan Assessment and Plan (1) Kidney stones: Plan Right ESWL scheduled with Dr. Marina October 05, 2024.
[2024-09-25 10:51] LABS: Hematocrit 41.1 % (42.0-54.0); Hemoglobin 14.1 g/dL (14.0-18.0); Immature Granulocytes Abs Auto 0.02 10^3/uL (0.00-0.03); Immature Granulocytes Pct Auto 0.3 % (0.0-0.5); Lymphocytes Absolute Auto 1.3 10^3/uL (1.2-3.8); Mean Corpuscular HGB Conc 34.3 g/dL (29.9-35.2); Mean Corpuscular Hemoglobin 33.8 pg (25.9-34.0); Mean Corpuscular Volume 98.6 fL (80.0-94.0); Platelet Count 189 10^3/uL (150-450); Red Blood Count 4.17 10^6/uL (4.70-6.10); White Blood Count 7.8 10^3/uL (4.0-11.0)
[2024-09-25 11:11] LABS: Anion Gap 9.6; Blood Urea Nitrogen 24.0 mg/dL (7.0-18.0); Calcium 9.0 mg/dL (8.5-10.1); Carbon Dioxide 27.5 mmol/L (21.0-32.0); Chloride 107 mmol/L (98-107); Estimated GFR (African America >60 (>=60 mL/min/1.73m^2); Estimated GFR (Non-African Ame >60 (>=60 mL/min/1.73m^2); Glucose 119 mg/dL (74-106); Potassium 4.1 mmol/L (3.5-5.1); Sodium 140 mmol/L (136-145)
[2024-09-25 11:13] LABS: INR 1.04; Partial Thromboplastin Time 25.5 sec (22.3-36.2); Prothrombin Time 11.0 sec (9.0-11.6)
== END 2024-09-25 10:02 | disposition home or self-care (01) ==
LOC: PST 10:04
PROVIDERS: PCP Internal Medicine; Visit Provider Urology
DX: Z01.810 Encounter for preprocedural cardiovascular examination (principal); Z01.812 Encounter for preprocedural laboratory examination; Z01.818 Encounter for other preprocedural examination; N20.0 Calculus of kidney
CPT/HCPCS: 80048; 85025; 85610; 85730; 93005; G0463

== ENCOUNTER 2024-10-05 11:48 | Day surgery (SDC) | payer MEDICARE, SELFPAY ==
[2024-09-25 10:37] VITALS: BP 157/83; PULSE 60; TEMP 36.4; O2SAT 94; BMI 33.8
[2024-10-05] VITALS (12 sets, daily range): BP systolic 137–163; BP diastolic 78–100; PULSE 55–67; TEMP 36.7–37.1; O2SAT 91–97; BMI 33.0
--- NOTE | 2024-10-05 12:30 | XR_ITS ---
[facility] [place] [id number] Patient Name: ARNOL ROBERT MRN: [id number] date: 1950 Sex: M Assigned Patient Location: [facility] Current Patient Location: Accession/Order Number: [id number] Exam Date: 10/05/2024 11:56 Report Date: 10/06/2024 00:26 At the request of: HANNA ROSALES MD Procedure: XR abdomen 1V XR abdomen 1V 10/05/2024 11:57 AM SIGNS AND SYMPTOMS: ^kidney stones \S.br\ PROTOCOL: Frontal radiographs of the abdomen and pelvis COMPARISON: None FINDINGS: There is a 3 mm radiodense stone in the left renal collecting system. There is a 6 mm radiodense stone in the right renal collecting system. Degenerative changes are noted throughout the visualized thoracolumbar spine. There is a nonobstructive bowel gas pattern. XR/XR abdomen 1V IMPRESSION: Bilateral renal stones are noted as above. Impression dictated by: Eron Davis M.D. 10/06/2024 12:26 AM Dictation Location: [place] [address] Electronically authenticated by: [id number] Y Date: 10/06/2024 00:26
[2024-10-05] MEDS: CEFAZOLIN SODIUM 2 GM/50 ML D5W PREMIX IV (13:17)
--- NOTE | 2024-10-05 13:56 | PM.URSON ---
Urology Surgery Operative Note Operative Note Procedure Date: 10/05/24 Time Out Performed: yes Pre-op Diagnosis: Right nephrolithiasis Post-op Diagnosis: same as pre-op Procedures performed: 1. Right ESWL. Anesthesia: General-LMA Primary Surgeon: Alverto Marina Complications: None Estimated blood loss (mL): 0 Findings: Dense bowel contents blurring her view. Right renal calculus just above 12th rib Specimens: None Drains: None Indications for Procedures: This gentleman has a nonobstructing 6 to 7 mm right renal calculus. He now presents for right ESWL. He has signed an informed consent after risks were explained. Some of these risks include bleeding, perinephric hematoma, infection and anesthesia to name a few. Detailed description of Procedure: The patient was brought to the Operating Room and placed on Siemens electromagnetic lithotripsy treatment table in the supine position. SCDs were placed on their lower extremities and turned on and functioning during the entire case. Timeout was done by all parties in the room. We all agreed upon the patient's identification and the planned procedures for this patient. General Anesthesia was then administered via LMA. Treatment head was then brought to the patient's correct side. While using flourscopy the stone was identified and lined up into the crosshairs. We then began applying shocks. I started at power level 2.0 and increased to a maximum power level of 3.5. Intermittent fluoroscopy revealed that the stone slowly steadily fragmented. He had a tiny bit of ectopy for which we needed to rotate the table some and this solved the problem. We applied a total of 3000 shocks. The last fluoroscopic image revealed no evidence of formed stone remaining. The procedure was then terminated. He was then transferred to a [facility] bed and wheeled to PACU in stable condition.
== END 2024-10-05 15:45 | disposition home or self-care (01) ==
LOC: SURGOUT 11:49
PROVIDERS: PCP Internal Medicine; Visit Provider Urology
PROC: (CPT 50590; principal; 2024-10-05 13:40)
DX: N20.0 Calculus of kidney (principal); E78.5 Hyperlipidemia, unspecified; M19.90 Unspecified osteoarthritis, unspecified site; C61 Malignant neoplasm of prostate; Z87.891 Personal history of nicotine dependence; Z96.659 Presence of unspecified artificial knee joint; I10 Essential (primary) hypertension
CPT/HCPCS: 50590; 36415; 74018; J0131; J0690; J1100; J2250; J2371; J2405; J2704; J3010